=== PATIENT | male | born 1965 | race Caucasian/White ===

== ENCOUNTER 2018-10-07 20:49 | Emergency (ER) | payer OTHER ==
[~2018-10-07] VITALS: Ht 167.6 cm; Wt 81.6 kg
[~2018-10-07 20:49] MED LIST: CEPH-264 PO; HYDR-2678 PO
[2018-10-07 20:58] VITALS: BP 175/107
[2018-10-07] MEDS ORDERED: AMOX500T PO (21:34)
[2018-10-07] MEDS ORDERED: MELO7.5T29 PO (21:34)
[2018-10-07] MEDS ORDERED: TRAM50TA PO (21:34)
--- NOTE | 2018-10-07 21:34 | PHYS DOC ---
Past History Past Medical History: No Pertinent History Past Surgical History: No Surgical History Alcohol Use: None Drug Use: None Adult General Chief Complaint Chief Complaint: DENTAL PROBLEM HPI HPI Patient is a 53-year-old male presents with right-sided jaw pain that radiates up into his ear occasionally. Increased pain with pressure. No hot or cold sensitivity. Minimal relief with acetaminophen. He has not used ibuprofen because that does not seem to help him in the past. No fever. No difficulty swallowing. No foul taste in the mouth. No worsening with exertion. No chest pain or palpitations. Symptoms are moderate in intensity. This started approximately a week ago. It became worse over the past 2 days.[] Review of Systems Review of Systems Constitutional: Denies fever or chills [] Eyes: Denies change in visual acuity, redness, or eye pain [] HENT: Denies nasal congestion or sore throat, see history of present illness [] Respiratory: Denies cough or shortness of breath [] Cardiovascular: No additional information not addressed in HPI [] GI: Denies abdominal pain, nausea, vomiting, bloody stools or diarrhea [] : Denies dysuria or hematuria [] Musculoskeletal: Denies back pain or joint pain [] Integument: Denies rash or skin lesions [] Neurologic: Denies headache, focal weakness or sensory changes [] Endocrine: Denies polyuria or polydipsia [] All other systems were reviewed and found to be within normal limits, except as documented in this note. Current Medications Current Medications Current Medications Medications (Trade) Dose Ordered Sig/Sánchez Start Time Stop Time Status Last Admin Dose Admin Amoxicillin (Amoxil) 500 mg 1X ONCE 10/07/18 21:30 10/07/18 21:31 UNV Allergies Allergies Allergies Coded Allergies Type Severity Reaction Last Updated Verified No Known Drug Allergies 12/01/15 No Physical Exam Physical Exam Constitutional: Well developed, well nourished, no acute distress, non-toxic appearance. [] HENT: Normocephalic, atraumatic, bilateral external ears normal, oropharynx m oist, no oral exudates, nose normal. Right-sided lower teeth have diffuse tenderness to percussion. No large caries. No drainable abscess. No evidence of Cliff exam showed a. Uvula is midline. No peritonsillar swelling. [] Eyes: PERRLA, EOMI, conjunctiva normal, no discharge. [] Neck: Normal range of motion, no tenderness, supple, no stridor. Mild anterior chain cervical lymphadenopathy. No nuchal rigidity. [] Cardiovascular:Heart rate regular rhythm, no murmur [] Lungs & Thorax: Bilateral breath sounds clear to auscultation [] Abdomen: Not Examined. [] Skin: Warm, dry, no erythema, no rash. [] Back: No tenderness, no CVA tenderness. [] Extremities: No tenderness, no cyanosis, no clubbing, ROM intact, no edema. [] Neurologic: Alert and oriented X 3, normal motor function, normal sensory function, no focal deficits noted. [] Psychologic: Affect normal, judgement normal, mood normal. [] Current Patient Data Vital Signs Vital Signs Date Time Temp Pulse Resp B/P (MAP) Pulse Ox O2 Delivery O2 Flow Rate FiO2 10/07/18 20:58 98.3 74 16 97 Room Air EKG EKG [] Radiology/Procedures Radiology/Procedures [] Course & Med Decision Making Course & Med Decision Making Pertinent Labs and Imaging studies reviewed. (See chart for details) ED course and medical decision making: Patient arrived, was placed in bed, and tolerated exam well. He was given a dose of amoxicillin due to pharmacies being closed at this time of the evening. Discussed findings and plan with patient who voiced understanding. This appears to be a periapical abscess around tooth #30. There is no evidence of a drainable abscess. No evidence Cliff exam showed a. No evidence of systemic toxicity. No evidence of impending airway compromise.[] Dragon Disclaimer Dragon Disclaimer This electronic medical record was generated, in whole or in part, using a voice recognition dictation system. Departure Departure: Impression: Primary Impression: Dental infection Disposition: HOME, SELF-CARE Condition: IMPROVED Referrals: PCP,NO (PCP) Patient Instructions: Dental Abscess Additional Instructions: Follow-up with your regular doctor and dentist in 2 days. If you do not have one a list of local clinics will be provided for you. Return to the ER if worsening pain, fever more than 101�, or any other concerns. Take the medication as prescribed. Scripts Tramadol Hcl (TRAMADOL HCL) 50 Mg Tablet 50 MG PO PRN Q6HRS PRN for PAIN, #20 TAB Prov: MALENA ABBOTT DO 10/07/18 Meloxicam (MELOXICAM) 7.5 Mg Tablet 7.5 MG PO DAILY for PAIN, #20 TAB Prov: MALENA ABBOTT DO 10/07/18 Amoxicillin (AMOXICILLIN) 500 Mg Tablet 500 MG PO TID for dental infection for 10 Days, #30 TAB Prov: MALENA ABBOTT DO 10/07/18 MALENA ABBOTT DO Oct 07, 2018 21:34
[2018-10-07] MEDS ORDERED: AMOXICILLIN 250 MG CAPSULE PO ONE (21:45)
== END 2018-10-07 21:44 | disposition home or self-care (01) ==
LOC: ER 20:49
DX: K04.7 Periapical abscess without sinus (principal)
CPT/HCPCS: 99283